=== PATIENT | male | born 1950 | race Caucasian/White ===

== ENCOUNTER 2018-11-27 06:44 | Observation (INO) | payer OTHER ==
[~2018-11-27] VITALS: Ht 190.5 cm; Wt 117.9 kg
[2018-11-27 07:13] VITALS: BP 118/70
[2018-11-27 07:20] LABS: HEMATOCRIT 41.8 % (42.0-52.0); HEMOGLOBIN 14.1 gm/dL (14.0-18.0); MCH 30.2 pg (26.0-34.0); MCHC 33.7 g/dL (28.0-37.0); MCV 89.7 fL (80.0-100.0); RBC 4.66 mil/uL (4.50-6.00); RDW 13.4 % (10.5-14.5); WBC 8.6 thou/uL (4.0-11.0)
[2018-11-27] MEDS ORDERED: LANTUS SUBQ (07:23)
[2018-11-27] MEDS ORDERED: ASPIR 8181 MG PO (07:23)
[2018-11-27] MEDS ORDERED: LIPITOR40 MG PO (07:23)
[2018-11-27] MEDS ORDERED: SYNTHROID25 MC1 PO (07:24)
[2018-11-27] MEDS ORDERED: LISINOPRIL10 MG PO (07:24)
[2018-11-27] MEDS ORDERED: GLUCOPHAGE XR500 MG PO (07:25)
[2018-11-27 07:32] LABS: POTASSIUM 4.1 mmol/L (3.5-5.1)
[2018-11-27] MEDS ORDERED: CRESTOR40 MG PO (09:48)
[2018-11-27] MEDS ORDERED: EFFIENT10 MG PO (09:51)
--- NOTE | 2018-11-27 12:33 | NUR ---
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 CALLED MARKETING TRAFFIC COORDINATOR AND ADMISSION PT WASN'T AVAILABLE FOR LAST 45 MIN. VS TAKE AND GROIN/PULSES CHECKED PER PROTOCOL, SEE DATA FLOW SHEET FOR INFO. PT IN [employer] WAS DELIGHTED TO BE ABLE TO GET UP 3H AFTER HEMOSTASIS, VERY HUNGRY; AWAITING FOOD. WAS ACCOMPANIED BY FAMILY . CARDIAC MONITORING, ROOM AIR, DENIES ANY PAIN/SORENESS AT THIS TIME. IVF RUNNING PER REPORT OF NURSE THERE WERE NO ORDERS AT THE TIME OF PERUSAL OF CHART. WILL CONTINUE TO MONITOR
--- NOTE | 2018-11-27 13:43 | EKG ---
[address] [address] ELECTROCARDIOGRAM REPORT Name: SHEILA NUR Room #: 209-P [facility] M..#: [id number] Admission: 11/27/18 Attend Phys: Chalo Espinosa MD, Discharge: Date of : 50 Report #: [id number] THIS REPORT FOR: //name// 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
--- NOTE | 2018-11-27 13:45 | EKG ---
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
--- NOTE | 2018-11-27 14:33 | CATHLAB ---
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 The Right Groin^ was infiltrated with 1% Lidocaine subcutaneous anesthesia. A PINNACLE 6FR Sheath #[id number] sheath was inserted into the RFA^. Coronary angiography was performed using coronary diagnostic catheters. The right coronary system was accessed and visualized with a JR4 catheter. The left coronary system was accessed and visualized with a JL4 catheter. The left ventricle was accessed and visualized with a Pigtail catheter. Left ventriculogram was performed in BRAGG projection. Closure device was deployed with a Fr MYNX CONTROL 6F/7F #[id number]. The patient tolerated the procedure well and there were no complications associated with the procedure. There was no hematoma. Intraoperative Conscious Sedation Sedation start time: 748 Case end Time: 848 Fentanyl 100 mcg Versed 1 mg Fluoro Time: 11.53 minutes Dose: DAP 99324.00 cGycm2 2513 mGy [facility] [address] [place] [address] INVASIVE PROCEDURE REPORT Name: SHEILA NUR Room #: 209-P [facility] IN ..#: [id number] Admission: 11/27/18 Attend Phys: Chalo Espinosa, Discharge: Date of : 50 Date of Service: 11/27/18 1433 Report #: [id number] Contrast Type and Amount: Omnipaque 175 ml Coronary Angiography The patient's coronary anatomy is right dominant. Diagnostic Cath Left Main Normal left main LAD 30% proximal LAD stenosis Diagonal 1 Large, proximal and bifurcating diagonal branch with mild plaquing Circumflex 95% proximal circumflex stenosis OM1 Large first marginal branch with tubular, eccentric 75% stenosis Right Coronary Large, dominant right coronary with mild scattered plaquing. Ramus Moderate size ramus branch with minimal proximal plaquing. Left Ventriculography The left ventricle is normal in size with normal contractility. The left ventricular ejection fraction is estimated to be 60-65%. Left ventricular wall motion abnormalities are not present. There is no mitral insufficiency. Hemodynamics The aortic pressure is 118/66 mmHg with a mean of 77 mmHg. The left ventricular pressure is 123/0 mmHg with a mean of mmHg. The left ventricular end diastolic pressure is 19 mmHg. PCI Technique Lesion Anticoagulation was achieved with Heparin, Integrilin. Patient was preloaded with Effient. Percutaneous coronary intervention was performed on the proximal circumflex artery segment. The lesion stenosis prior to intervention was 99% with LUCIA 3 flow. A LAUNCHER 6FR EBU 4 #[id number] Guide Catheter was used to engage the left main ostium. A Luge Wire .014 x 182CM #[id number] Interventional Guidewire was used to cross the lesion. BALLOON DILATION A Balloon catheter Euphora RX 2.5 x 12 #[id number] was inserted and inflated up to 12.00atm for 34seconds. Repeat angiography revealed the following post-dilatation results: moderate residual stenosis moderate residual stenosis. STENT DEPLOYMENT A drug-eluting stent RESOLUTE TERESA RX 3.0 X 15 #[id number] [place] [address] INVASIVE PROCEDURE REPORT Name: SHEILA NUR Room #: 209-P [facility] IN M.R.#: [id number] Admission: 11/27/18 Attend Phys: Chalo Espinosa, Discharge: Date of : 50 Date of Service: 11/27/18 1433 Report #: [id number] and inflated up to 15.00atm for 30seconds. Repeat angiography revealed the following post-stent deployment results: 0% residual stenosis. POST STENT DEPLOYMENT BALLOON DILATION A Balloon catheter TREK NC RX 3.0 X 12 #[id number] was inserted and inflated up to 16.00atm for 31seconds. Additional Inflation: 18.00atm for 25seconds. Final angiography reveals 0 % stenosis with LUCIA 3 flow. Final angiography reveals 0 % stenosis with LUCIA flow. PCI Technique Lesion 2 Percutaneous Coronary Intervention was performed on the first obtuse marginal branch segment. The lesion stenosis prior to intervention was 75% with LUCIA flow. A LAUNCHER 6FR EBU 4 #[id number] Guide Catheter was used to engage the ostium. A Luge Wire .014 x 182CM #[id number] Interventional Guidewire was used to cross the lesion. Balloon Dilation A Balloon catheter TREK NC RX 3.0 X 12 #[id number] was inserted and inflated up to 10atm for 31seconds. Stent Deployment A stent RESOLUTE TERESA RX 2.75 X15 #[id number] was inserted and inflated up to 14atm for 31seconds. Post Stent Deployment Balloon Dilation A Balloon catheter TREK NC RX 3.0 X 12 #[id number] was inserted and inflated up to 12atm for 30seconds. Additional Inflation: 13atm for 21seconds. Final angiography reveals 0 % stenosis with LUCIA 3 flow. Conclusion 1. Normal global and regional left ventricular systolic function. Ejection fraction 65%. 2. Left main: Normal 3. Left anterior descending: Mild proximal plaquing 4. Critical proximal circumflex stenosis stented with a 3.0 x 15 mm Resolute medicated stent 5. Severe OM1 branch stenosis stented with a 2.75 x 15 mm Resolute medicated stent 6. Mild plaquing in a dominant right coronary. [facility] [address] [address] INVASIVE PROCEDURE REPORT Name: SHEILA NUR Room #: 209-P ADM IN M.R.#: [id number] Admission: 11/27/18 Attend Phys: Chalo Espinosa, Discharge: Date of : 50 Date of Service: 11/27/18 [facility] Report #: [id number] Recommendations Cardiac Rehabilitation Referral Aggressive Medical Therapy <ELECTRONICALLY SIGNED> By: Chalo Espinosa MD, [facility] 11/27/18 1433 32 [facility] Chalo Espinosa MD, [facility] /INF
[2018-11-27 15:26] VITALS: BP 126/76
[2018-11-27 19:21] VITALS: BP 108/67
[2018-11-28 00:30] VITALS: BP 111/69
[2018-11-28 05:11] LABS: HEMATOCRIT 40.7 % (42.0-52.0); HEMOGLOBIN 13.8 gm/dL (14.0-18.0); MCH 30.2 pg (26.0-34.0); MCHC 33.9 g/dL (28.0-37.0); RBC 4.58 mil/uL (4.50-6.00); RDW 13.6 % (10.5-14.5)
[2018-11-28 05:36] LABS: ALBUMIN 3.3 g/dL (3.4-5.0); CALCIUM 8.7 mg/dL (8.5-10.1); CREATININE 0.8 mg/dL (0.7-1.3); POTASSIUM 3.9 mmol/L (3.5-5.1); TOTAL BILIRUBIN 1.2 mg/dL (<0.1-1.0); TOTAL PROTEIN 6.9 g/dL (6.4-8.2)
[2018-11-28 05:37] VITALS: BP 118/64
[2018-11-28 05:43] LABS: TROPONIN-I 0.76 ng/mL (<0.06)
--- NOTE | 2018-11-28 06:12 | NUR ---
ASSUME CARE 1900. PT/VITALS STABLE. DENIES ANY PAIN. RIGHT GROIN SITE CDI. PROGRESSING WELL WITH POC. ASSESSMENT ASA CHARTED. PLAN IS POSSIBLE DISCHARGE TODAY. WILL CONTINUE TO MONITOR AND FOLLOW WIHT POC
[2018-11-28 08:48] VITALS: BP 116/79
[2018-11-28 09:40] VITALS: BP 116/79
--- NOTE | 2018-11-28 10:52 | NUR ---
ASSUMED CARE OF PT AT SHIFT CHANGE. ASSESSEMENT CHARTED. MEDS ADMINISTERED PER JUN. VSS. INITIATED DISCHARGE ORDERS. CONFIRMED PT HAD NEEDED SCRIPTS. PROVIDED DISCHARGE PAPERWORK AND INSTRUCTION. PT STATED UNDERSTANDING. REMOVED IV AND TELE BOX. ESCORTED PT WITH TO [facility].
--- NOTE | 2018-11-28 10:59 | EKG ---
[address] [address] ELECTROCARDIOGRAM REPORT Name: SHEILA NUR Room #: 209-[facility] M.R.#: [id number] Admission: 11/27/18 Attend Phys: Chalo Espinosa MD, Discharge: 11/28/18 Date of : 50 Report #: [id number] THIS REPORT FOR: //name// [facility] Test Date: 2018-11-28 Test Time: 07:14:08 Pat Name: SHEILA NUR Department: Room: 209 Gender: M Magazine Feeder: Mario WILLARD : 1950 Requested By: Chalo Espinosa Order Number: [id number] MD: Jesus Johnston Measurements Intervals [place] Rate: 62 P: 43 PA: 176 QRS: 5 QRSD: 98 T: 41 QT: 413 QTc: 420 Interpretive Statements Sinus rhythm Compared to ECG 11/27/2018 09:26:03 No significant changes Electronically Signed On 11-28-2018 10:58:48 CDT by Jesus Johnston [email or web address] <ELECTRONICALLY SIGNED> By: Jesus Johnston MD 11/28/18 1058 0714 0714 MD ASHLY Barry
--- NOTE | 2018-12-01 17:29 | D ---
[facility] [place] [address] DISCHARGE SUMMARY Name: SHEILA NUR Room #: 209-P [facility] Enzo Up#: [id number] Admission: 11/27/18 Attend Phys: Chalo Espinosa MD, Discharge: 11/28/18 Date of : 50 Report #: [id number] THIS REPORT FOR: //name// CC: Mitch Espinosa DISCHARGE DIAGNOSES: 1. Severe single vessel coronary artery disease with stenting of the proximal circumflex (3.0 x 15 mm Resolute) and proximal first marginal branch (2.75 x 15 mm Resolute). 2. Hypertension. 3. Diabetes. 4. Dyslipidemia. HISTORY OF PRESENT ILLNESS: For the complete details of the history of present illness, see dictated history and physical. Briefly, the patient is a 68-year-old gentleman who presented with a history of exertional breathlessness. An outpatient stress study suggested inferolateral ischemia. Echocardiography was normal. He was admitted for coronary angiography. HOSPITAL COURSE: The patient was admitted and underwent coronary angiography. The full details of this can be found under separate heading and dictation. In summary, he was found to have severe sequential disease in the circumflex, a very high grade 99% proximal circumflex stenosis. This was followed by 75% stenosis in a large first marginal branch. Both of these vessels were stented. The proximal vessel with a 3.0 x 15 mm Resolute stent and the OM branch with a 2.75 x 15 mm Resolute stent. His post-procedural course was uneventful. He was treated with aspirin, Effient, heparin and Integrilin in the symone-procedural setting. He is ambulating and pain free with excellent groin hemostasis at the time of discharge. A recent lipid profile demonstrated an LDL of 93, total cholesterol of 152 and HDL of 33. Medicines were reconciled. Arrangements were made for outpatient cardiac rehabilitation. Followup with myself in [address] Nash Peres as directed. DISCHARGE MEDICATIONS: 1. Aspirin 81 mg daily. 2. Rosuvastatin 40 mg daily. 3. Insulin. 4. Levothyroxine 25 mcg daily. 5. Lisinopril 10 mg daily. 6. Metformin 500 mg twice daily. DISCHARGE DIET: Low-fat, low-cholesterol, diabetic diet. [address] [address] DISCHARGE SUMMARY Name: SHEILA NRU Room #: 209-P [facility] Enzo Up#: [id number] Admission: 11/27/18 Attend Phys: Chalo Esipnosa MD, Discharge: 11/28/18 Date of : 50 Report #: [id number] DISCHARGE ACTIVITY: As instructed post-catheterization and stenting. DISCHARGE CONDITION: Stable and improved. <ELECTRONICALLY SIGNED> By: Chalo Espinosa MD, [facility] 12/01/18 1729 0926 1205 Chalo Espinosa MD, FACC /nt
== END 2018-11-28 10:45 | disposition home or self-care (01) ==
LOC: CATH 06:44 → 2N 08:16 → CATH 09:57 → 2N 11-28 10:45
PROVIDERS: ADMIT Internal Medicine
DX: I25.110 Atherosclerotic heart disease of native coronary artery with unstable angina pectoris (principal); I10 Essential (primary) hypertension; E11.9 Type 2 diabetes mellitus without complications; E78.5 Hyperlipidemia, unspecified; Z79.82 Long term (current) use of aspirin; Z79.4 Long term (current) use of insulin; Z79.899 Other long term (current) drug therapy

== ENCOUNTER → 2019-07-05 | Outpatient (CLI) | payer OTHER ==
[~2019-07-05] MED LIST: ASPIR 8181 MG PO; CRESTOR40 MG PO; EFFIENT10 MG PO; GLUCOPHAGE XR500 MG PO; LANTUS SUBQ; LIPITOR40 MG PO; LISINOPRIL10 MG PO; SYNTHROID25 MC1 PO
== END ==
LOC: SJCVC 10:38
DX: I10 Essential (primary) hypertension (principal); I25.10 Atherosclerotic heart disease of native coronary artery without angina pectoris; E78.5 Hyperlipidemia, unspecified; E11.9 Type 2 diabetes mellitus without complications; Z79.82 Long term (current) use of aspirin; Z79.4 Long term (current) use of insulin; Z79.899 Other long term (current) drug therapy

== ENCOUNTER → 2020-01-10 | Outpatient (CLI) | payer OTHER | LOC: SJCVC 10:12 | PROVIDERS: ATTEND Internal Medicine | DX: I25.10 Atherosclerotic heart disease of native coronary artery without angina pectoris (principal); I10 Essential (primary) hypertension; E78.5 Hyperlipidemia, unspecified; E11.9 Type 2 diabetes mellitus without complications; Z79.899 Other long term (current) drug therapy ==

== ENCOUNTER → 2020-07-12 | Outpatient (CLI) | payer OTHER | LOC: SJCVCIMAG 08:34 | PROVIDERS: ATTEND Internal Medicine | DX: I05.9 Rheumatic mitral valve disease, unspecified (principal); R00.0 Tachycardia, unspecified; I25.10 Atherosclerotic heart disease of native coronary artery without angina pectoris; I10 Essential (primary) hypertension; E78.5 Hyperlipidemia, unspecified; E11.9 Type 2 diabetes mellitus without complications; Z86.010 Personal history of colon polyps; E03.9 Hypothyroidism, unspecified; M19.90 Unspecified osteoarthritis, unspecified site; Z79.82 Long term (current) use of aspirin; Z79.899 Other long term (current) drug therapy; Z79.4 Long term (current) use of insulin; Z72.89 Other problems related to lifestyle; Z98.61 Coronary angioplasty status ==

== ENCOUNTER → 2021-01-12 | Outpatient (CLI) | payer OTHER | LOC: SJCVC 10:28 | PROVIDERS: ATTEND Internal Medicine | DX: R94.31 Abnormal electrocardiogram [ECG] [EKG] (principal); I25.10 Atherosclerotic heart disease of native coronary artery without angina pectoris; I10 Essential (primary) hypertension; E78.5 Hyperlipidemia, unspecified; E11.9 Type 2 diabetes mellitus without complications; E03.9 Hypothyroidism, unspecified; E78.2 Mixed hyperlipidemia; M19.90 Unspecified osteoarthritis, unspecified site; Z72.89 Other problems related to lifestyle; Z79.82 Long term (current) use of aspirin; Z79.4 Long term (current) use of insulin ==